=== PATIENT | female | born 1990 | race Caucasian/White ===

== ENCOUNTER 2017-06-22 19:04 | Emergency (ER) | payer OTHER ==
[~2017-06-22] VITALS: Ht 160 cm; Wt 61.5 kg
[2017-06-22 19:21] VITALS: Ht 160 cm; Wt 61.5 kg
[2017-06-22] MEDS ORDERED: AMOX1TAB10 PO (21:57)
--- NOTE | 2017-06-22 21:57 | ERD ---
ER Documentation Chief Complaint Date/Time DATE: 06/22/17 TIME: 21:46 Chief Complaint RIGHT SIDE FACIAL, EAR, HEAD PAIN X 2 YEARS HPI 27-year-old female presents to emergency department for evaluation of right- sided facial pain and headache and her dentist today told that she had a infection and she go to the emergency department for treatment. ROS All systems reviewed and are negative except as per history of present illness. Medications Home Meds Active Scripts Sodium Chloride (Saline Nasal Mangham) 30 Ml Mangham, 30 ML NS as needed for NASAL CONGESTION for 7 Days, SPRAY Prov:MARTÍNEZ,LILY 06/22/17 Loratadine* (Claritin*) 10 Mg Tablet, 10 MG PO DAILY for 30 Days, TAB Prov:MARTÍNEZ,LILY 06/22/17 Amoxicillin/Potassium Clav (Amox-Clav 875-125 mg Tablet) 875-125 mg Tab, 1 TAB PO BID for 10 Days, #20 TAB Prov:MARTÍNEZ,LILY 06/22/17 Allergies Allergies: Coded Allergies: No Known Allergy (Unverified , 06/22/17) PMhx/Soc Medical and Surgical Hx: pt denies Medical Hx, pt denies Surgical Hx Hx Alcohol Use: No Hx Substance Use: No Hx Tobacco Use: No Smoking Status: Never smoker Physical Exam Vitals Stable, triage notes reviewed Physical Exam Const: Nourished well-hydrated well-appearing in obvious discomfort no acute distress Head: Atraumatic Eyes: Normal Conjunctiva, PERRLA, EOMI ENT: Membranes translucent, auditory canals are clear, nasal mucosa is edematous, right turbinate +3, with maxillary and frontal sinus tenderness, pain behind right eye with leaning forward. Pharynx is pink, uvula midline without shift rises and falls with pronation. Neck: Full range of motion..~ No meningismus. Resp: Cardio: Abd: Skin: Back: Ext: Neur: Awake and alert Psych: Normal Mood and Affect Procedures/MDM 27-year-old female presents to emergency department today evaluation of right maxillary tenderness. Patient was seen at her dentist today told that she did not have a dental infection. Was instructed to come to emergency department or her primary care doctor to have assessment. Patient reports she has pain, bad breath, altered taste sensation. Headache. Jaw pain. Symptoms have been progressively worsening over the last 10 days. Denies history of nausea, vomiting, fever, denies history of allergic rhinitis. Physical exam findings and history support sinusitis. Patient will be discharged home with Augmentin 875 twice daily 10 days, start Claritin 10 mg tablet 1 pill once a day 30 days , and nasal saline as needed for comfort. Okay to use [id number] analgesic for headache of choice. Follow-up with primary care physician if symptoms fail to improve as anticipated. Patient is stable with no new complaints during ER course, clinically there is no current evidence to suggest meningitis, mastoiditis, parotiditis or any other emergent condition appearing to require further evaluation or hospitalization. I feel the patient is stable for discharge at this time. I have discussed results, examination findings, the treatment plan with the patient and family present prior to discharge. Indications for emergent reevaluation, side effects of medication were also discussed. All questions were answered. Patient verbalizes understanding and agrees with plan of care. Departure Diagnosis: Primary Impression: Acute maxillary sinusitis Recurrence: not specified as recurrent Qualified Code: J01.00 - Acute maxillary sinusitis, recurrence not specified Condition: Good Patient Instructions: Acute Sinusitis Referrals: [facility] Additional Instructions: Thank you for for coming to [facility] for your care today. Please ask your nurse or provider if you have questions about your care today and do not leave until all your questions have been answered. Please use any medications given as directed and follow-up with your doctor (or the doctor you were referred to) in the next 2-3 days. If you do not have a primary care doctor you may follow up at the [facility] (listed below). You may also use motrin and tylenol as needed for fever and/or pain unless instructed otherwise by your provider or nurse. Indications for more urgent follow-up have been discussed, but you may return to the Emergency Department at ANY time for any worrisome or worsening symptoms. If you have abdominal pain, please know that no test or exam you received is perfect and you should follow up within 8 hours for continued pain. If you had any imaging studies today, such as an X-Ray or CT Scan, these studies will be reviewed later by a radiologist. You will be called if there are important findings that were not identified today, so make sure the contact information you provided at registration is correct. If you received any narcotic pain control medicine today, such as Vicodin, Morphine or Dilaudid, your coordination and judgment may be affected for a number of hours. Please do not drive or operate heavy machinery, and you may want someone to assist you at home. If you were given a prescription for narcotic medication, be aware that it is very addictive- use sparingly and only if necessary. LILY SOLIZ Jun 22, 2017 21:57
[2017-06-22] MEDS ORDERED: LORA-186 PO (21:58)
[2017-06-22] MEDS ORDERED: SODI30SP2 NS (21:59)
== END 2017-06-22 22:04 | disposition home or self-care (01) ==
LOC: FTE 19:04
DX: J01.00 Acute maxillary sinusitis, unspecified (principal)
CPT/HCPCS: 99283